=== PATIENT | male | born 1970 | race Caucasian/White ===

== ENCOUNTER → 2022-08-31 11:44 | Outpatient (CLI) | payer BC, SELFPAY | PROVIDERS: Visit Provider Nurse Practitioner Family | DX: R30.0 Dysuria (principal) | CPT/HCPCS: 87086 ==

== ENCOUNTER → 2022-08-31 12:32 | Outpatient (CLI) | payer BC, SELFPAY ==
[2022-08-31 14:01] LABS: Hepatitis B Surface Antigen NEGATIVE s/c (NEGATIVE)
[2022-08-31 14:18] LABS: Hep C Virus Ab w/Reflex Quant NEGATIVE s/c (NEGATIVE)
[2022-08-31 14:19] LABS: HIV 1 & 2 Ab/Ag 4th Gen Combo NEGATIVE (NEGATIVE)
[2022-09-02 03:20] LABS: HSV 2 IGG AB < 0.91 index (0.00-0.90); RPR Screen Non Reactive (Non Reactive)
== END ==
PROVIDERS: PCP Family Medicine; Referring Provider Nurse Practitioner Family; Visit Provider Nurse Practitioner Family
DX: R30.0 Dysuria (principal)
CPT/HCPCS: 36415; 86592; 86695; 86696; 86803; 87086; 87340; 87389

== ENCOUNTER → 2022-09-03 12:17 | Outpatient (CLI) | payer BC, SELFPAY ==
[2022-09-03 15:24] LABS: Urine N gonorrhoeae NOT DETECTED
[2022-09-03 15:26] LABS: Urine Chlamydia NOT DETECTED
== END ==
PROVIDERS: PCP Family Medicine; Referring Provider Nurse Practitioner Family; Visit Provider Nurse Practitioner Family
DX: R30.0 Dysuria (principal)
CPT/HCPCS: 87491; 87591